=== PATIENT | female | born 1990 | race Two or more races ===

== ENCOUNTER 2020-02-10 15:23 | Emergency (ER) | payer OTHER ==
[~2020-02-10] VITALS: Ht 160 cm; Wt 79.5 kg
--- NOTE | 2020-02-10 16:10 | RAD ---
ANKLE LEFT 3V History: Reason: pain, trauma, twisted ankle today hx tendon reconstruction / Spl. Instructions: / History: Technique: 3 views left ankle Comparison: None. Findings: Lateral ankle soft tissue swelling. Symmetric ankle mortise. Joint effusion. Postop changes lateral malleolus. Small corticated calcifications inferior to the lateral malleolus, likely related to prior trauma. No acute fracture. Impression: 1. No acute osseous abnormality. 2. Lateral ankle soft tissue swelling with ankle joint effusion. 3. Postoperative changes lateral malleolus. Electronically signed by: Esau Kaye DO (02/10/2020 4:07 PM) [facility]
--- NOTE | 2020-02-10 16:24 | PHYS DOC ---
Past History Past Medical History: Other Additional Past Medical Histor: IRON DEFICIENCY Past Surgical History: , Other Additional Past Surgical Histo: LEFT ANKLE Alcohol Use: Occasionally Adult General Chief Complaint Chief Complaint: LOWER EXT PAIN HPI HPI Patient is a 29-year-old female who presents to the emergency room complaining of left ankle pain. Patient was running an obstacle course for the [employer] today and while running down a steep hill with her equipment on it she hit a pile of slick leaves and her ankle twisted. Since then she has had severe pain in her ankle and swelling. She has had reconstructive surgery on that ankle previously. She has been able to walk but it has been very limited due to significant pain. Pain is worse with flexion. Review of Systems Review of Systems Complete ROS is negative unless otherwise documented in HPI Allergies Allergies Allergies Coded Allergies Type Severity Reaction Last Updated Verified hydromorphone Allergy Unknown 02/10/20 Yes Physical Exam Physical Exam General: Awake, alert, NAD. Well Nourished, well hydrated. Cooperative HEENT: Atraumatic, EOMI, PERRL, airway patent, moist oral mucosa Neck: Supple, trachea midline Respiratory: CTA bilaterally, normal effort, no wheezing/crackles CV: RRR, no murmur, cap refill <2 GI: Soft, nondistended, nontender, no masses MSK: Left ankle: Tenderness to medial and lateral malleolus with swelling Skin: Warm, dry, intact Neuro: A&O x3, speech NL, sensory and motor grossly intact, no focal deficits Psych: Normal affect, normal mood, not suicidal or homicidal Current Patient Data Vital Signs Vital Signs Date Time Temp Pulse Resp B/P (MAP) Pulse Ox O2 Delivery O2 Flow Rate FiO2 02/10/20 15:25 97.9 117 18 116/79 (91) 97 Room Air EKG EKG [] Radiology/Procedures Radiology/Procedures [] Heart Score Risk Factors: Risk Factors: DM, Current or recent (<one month) smoker, HTN, HLP, family history of CAD, obesity. Risk Scores: Risk Factors: DM, Current or recent (<one month) smoker, HTN, HLP, family history of CAD, obesity. Course & Med Decision Making Course & Med Decision Making Pertinent Labs and Imaging studies reviewed. (See chart for details) Patient is a 29-year-old female presents to the emergency room after trauma to her ankle. X-rays negative for acute fractures. Given concern for possible ligamentous injury or high sprain she was placed in a boot and will follow up with Dr. Rojo. Patient's test results and vitals while in the ED were fully reviewed and discussed with the patient. Patient is stable and at this time does not need admission to the hospital. We have discussed strict return precautions and the importance of following up with their Primary Care Physician. Patient stated understanding and was given an opportunity to ask any questions. Patient is in agreement with plan. Dragon Disclaimer Dragon Disclaimer This electronic medical record was generated, in whole or in part, using a voice recognition dictation system. Departure Departure: Impression: Primary Impression: Left ankle sprain Additional Impression: Ankle joint effusion Disposition: 01 DC HOME SELF CARE/HOMELESS Condition: STABLE Referrals: PCP,DAMIR (PCP) HALEY ROJO MD Patient Instructions: Ankle Sprain Problem Qualifiers STEFANI SEAMAN MD Feb 10, 2020 16:24
[2020-02-10 16:50] VITALS: BP 124/84
== END 2020-02-10 16:55 | disposition home or self-care (01) ==
LOC: ER 15:23
DX: S93.402A Sprain of unspecified ligament of left ankle, initial encounter (principal); M25.472 Effusion, left ankle; Z88.5 Allergy status to narcotic agent; X50.9XXA Other and unspecified overexertion or strenuous movements or postures, initial encounter; Y93.02 Activity, running; Y92.89 Other specified places as the place of occurrence of the external cause; Y99.8 Other external cause status
CPT/HCPCS: 29515; 73610; 99283

== ENCOUNTER 2020-10-18 16:37 | Emergency (ER) | payer OTHER ==
[~2020-10-18] VITALS: Ht 160 cm; Wt 70.0 kg
[2020-10-18 16:51] VITALS: BP 145/92
[2020-10-18] MEDS ORDERED: CYCL-331 PO (18:18)
--- NOTE | 2020-10-18 18:20 | PHYS DOC ---
Past History Past Medical History: Other Additional Past Medical Histor: IRON DEFICIENCY Past Surgical History: No Surgical History Additional Past Surgical Histo: LEFT ANKLE Alcohol Use: None General Adult EDM: Chief Complaint: BACK PAIN OR INJURY HPI: HPI: Patient is a 30-year-old female who presents with pain in the middle of her upper back. Patient states that on Saturday she woke up and had tight muscle pain between her shoulder blades. Denies injury. Patient states pain is exacerbated with movement and deep breath. Reports taking 800 mg of ibuprofen yesterday but nothing today. Rating pain 7/10. Denies chest pain, shortness of breath. Review of Systems: Review of Systems: Constitutional: Denies fever or chills Eyes: Denies change in visual acuity HENT: Denies nasal congestion or sore throat Respiratory: Denies cough or shortness of breath Cardiovascular: Denies chest pain or edema GI: Denies abdominal pain, nausea, vomiting, bloody stools or diarrhea : Denies dysuria Musculoskeletal: Reports back pain Integument: Denies rash Neurologic: Denies headache, focal weakness or sensory changes Endocrine: Denies polyuria or polydipsia Lymphatic: Denies swollen glands Psychiatric: Denies depression or anxiety Allergies: Allergies: Allergies Coded Allergies Type Severity Reaction Last Updated Verified hydromorphone Allergy Unknown 02/10/20 Yes Physical Exam: PE: Constitutional: Well developed, well nourished, no acute distress, non-toxic appearance. [] HENT: Normocephalic, atraumatic, bilateral external ears normal, oropharynx moist, no oral exudates, nose normal. [] Eyes: PERRLA, EOMI, conjunctiva normal, no discharge. [] Neck: Normal range of motion, tenderness with movement to the left Cardiovascular:Heart rate regular rhythm, no murmur [] Lungs & Thorax: Bilateral breath sounds clear to auscultation [] Abdomen: Bowel sounds normal, soft, no tenderness, no masses, no pulsatile masses. [] Skin: Warm, dry, no erythema, no rash. [] Back: Tenderness between shoulder blades, no CVA tenderness. [] Extremities: No tenderness, no cyanosis, no clubbing, ROM intact, no edema. [] Neurologic: Alert and oriented X 3, normal motor function, normal sensory function, no focal deficits noted. [] Psychologic: Affect normal, judgement normal, mood normal. [] Current Patient Data: Vital Signs: Vital Signs Date Time Temp Pulse Resp B/P (MAP) Pulse Ox O2 Delivery O2 Flow Rate FiO2 10/18/20 16:51 98.6 120 18 145/92 97 Room Air EKG: EKG: [] Radiology/Procedures: Radiology/Procedures: [] Heart Score: C/O Chest Pain: No Risk Factors: Risk Factors: DM, Current or recent (<one month) smoker, HTN, HLP, family history of CAD, obesity. Risk Scores: Score 0 - 3: 2.5% MACE over next 6 weeks - Discharge Home Score 4 - 6: 20.3% MACE over next 6 weeks - Admit for Clinical Observation Score 7 - 10: 72.7% MACE over next 6 weeks - Early Invasive Strategies Course & Med Decision Making: Course & Med Decision Making Pertinent Labs and Imaging studies reviewed. (See chart for details) [] 30-year-old female presents with pain in the middle of her upper back that started on Saturday morning when she woke up. Patient been taking ibuprofen for discomfort with some relief. Last dose was yesterday evening. Patient is rating pain a 7/10. Patient is able to reproduce pain with movement. Denies chest pain, shortness of breath. Patient given Toradol. Sent home with prescription for Flexeril. Instructed patient to continue taking ibuprofen at home. Ice to the area. Follow-up with PCP if pain continues. Patient's appreciative discharge plan. Jerry Disclaimer: Jerry Disclaimer: This electronic medical record was generated, in whole or in part, using a voice recognition dictation system. Departure Departure: Impression: Primary Impression: Back pain Qualified Codes: M54.6 - Pain in thoracic spine Disposition: HOME / SELF CARE / HOMELESS Condition: STABLE Referrals: PCP,NO (PCP) Patient Instructions: Back Pain, Adult, [id number] Additional Instructions: You are seen in the emergency room for pain that started on Saturday in between your shoulder blades. Continue taking ibuprofen at home for discomfort. Sending patient home on a prescription for Flexeril. Instructed patient to use ice for pain. Follow up with PCP if pain continues. EMERGENCY DEPARTMENT GENERAL DISCHARGE INSTRUCTIONS Thank you for coming to [facility] (ED) today and trusting us with you care. We trust that you had a positivie experience in our Emergency Department. If you wish to speak to the department management, you may call the director at [phone]. YOUR FOLLOW UP INSTRUCTIONS ARE FOLLOWS: 1. Do you have a private Doctor? If you do not have a private doctor, please ask for a resource list of physicians or clinics that may be able to assist you with follo w up care. 2. The Emergency Physician has interpreted your x-rays. The X-Ray specialist will also review them. If there is a change in the findings, you will be notified in 48 hours when at all possible. 3. A lab test or culture has been done, your results will be reviewed and you will be notified if you need a change in treatment. ADDITIONAL INSTRUCTIONS AND INFORMATION: 1. Your care today has been supervised by a physician who is specially trained in emergency care. Many problems require more than one evaluation for a complete diagnosis and treatment. We recommend that you schedule your follow up appointment as rec ommended to ensure complete treatment of you illness or injury. If you are unable to obtain follow up care and continue to have a problem, or if your condition worsens, we recommend that you return to the ED. 2. We are not able to safely determine your condition over the phone nor are we able to give sound medical advice over the phone. For these safety reasons, if you call for medical advice we will ask you to come to the ED for further evaluation. 3. If you have any questions regarding these discharge instructions please call the ED at [phone]. SAFETY INFORMATION: In the interest of safety, wellness, and injury prevention; we encourage you to wear your sealbelt, if you smoke; quite smoking, and we encourage family to use a protective helmet for bicycling and other sporting events that present an increased risk for head injury. IF YOUR SYMPTOMS WORSEN OR NEW SYMPTOMS DEVELOP, OR YOU HAVE CONCERNS ABOUT YOUR CONDITION; OR IF YOUR CONDITION WORSENS WHILE YOU ARE WAITING FOR YOUR FOLLOW UP APPOINTMENT; EITHER CONTACT YOUR PRIMARY CARE DOCTOR, THE PHYSICIAN WHOSE NAME AND NUMBER YOU WERE GIVEN, OR RETURN TO THE ED IMMEDIATELY. Scripts Cyclobenzaprine Hcl (CYCLOBENZAPRINE HCL) 10 Mg Tablet 1 TAB PO TID for mucscle spasm for 10 Days, #30 TAB Prov: KATLIN SLAUGHTER APRN 10/18/20 KATLIN SLAUGHTER APRN Oct 18, 2020 18:20
[2020-10-18] MEDS ORDERED: KETOROLAC 15 MG/ML VIAL. IM ONE (18:30)
== END 2020-10-18 18:28 | disposition home or self-care (01) ==
LOC: ER 16:37
DX: M54.6 Pain in thoracic spine (principal); Z88.5 Allergy status to narcotic agent
CPT/HCPCS: 99283